=== PATIENT | male | born 1995 | race African-American/Black ===

== ENCOUNTER 2016-11-07 12:17 | Emergency (ER) | payer OTHER ==
[~2016-11-07] VITALS: Ht 167.6 cm; Wt 59.0 kg
[2016-11-07] MEDS ORDERED: LIDOCAINE HCL BUFFERED 1% 20 ML VIAL INJ ONE (15:00)
[2016-11-07] MEDS ORDERED: HYDROCODONE/ACETAMINOPHEN 5-325 MG TABLET PO ONE (15:00)
[2016-11-07] MEDS ORDERED: ETHYL CHLORIDE 103.5 ML SPRAY TP ONE (15:45)
[2016-11-07] MEDS ORDERED: POVIDONE-IODINE 10% 15 ML SOLUTION UD TP ONE (16:30)
[2016-11-07 17:39] VITALS: BP 128/72
== END 2016-11-07 18:00 | disposition home or self-care (01) ==
LOC: EMS 12:18
DX: L02.31 Cutaneous abscess of buttock (principal); F17.210 Nicotine dependence, cigarettes, uncomplicated
CPT/HCPCS: 10060; 99283; J3490

== ENCOUNTER 2016-11-09 10:39 | Emergency (ER) | payer OTHER ==
[~2016-11-09] VITALS: Ht 160 cm; Wt 61.4 kg
[2016-11-09 10:41] VITALS: BP 109/71
[2016-11-09] MEDS ORDERED: ACETAMINOPHEN/CODEINE 300-30 MG TABLET PO ONE (11:45)
== END 2016-11-09 12:41 | disposition home or self-care (01) ==
LOC: EMS 10:40
DX: Z48.00 Encounter for change or removal of nonsurgical wound dressing (principal); F17.210 Nicotine dependence, cigarettes, uncomplicated
CPT/HCPCS: 99282; 99283

== ENCOUNTER 2016-11-29 20:22 | Emergency (ER) | payer OTHER ==
[~2016-11-29] VITALS: Ht 172.7 cm; Wt 63.6 kg
[2016-11-29 20:29] VITALS: BP 111/58
[2016-11-29] MEDS ORDERED: CEPH500 PO (20:31)
[2016-11-29] MEDS ORDERED: SULF1TAB42 PO (20:31)
[2016-11-29] MEDS ORDERED: DOXYCYCLINE 100 MG CAPSULE PO ONE (21:15)
[2016-11-29] MEDS ORDERED: CEPHALEXIN MONOHYDRATE 500 MG CAPSULE PO ONE (21:15)
[2016-11-29] MEDS ORDERED: BUPIVACAINE HCL/PF 0.25% 10 ML VIAL INJ ONE (21:15)
[2016-11-29] MEDS ORDERED: IBUPROFEN 600 MG TABLET PO ONE (21:15)
== END 2016-11-29 21:59 | disposition home or self-care (01) ==
LOC: EMS 20:23
DX: H60.02 Abscess of left external ear (principal); F17.210 Nicotine dependence, cigarettes, uncomplicated
CPT/HCPCS: 10060; 99284; 99406; J3490

== ENCOUNTER 2016-12-01 17:27 | Emergency (ER) | payer OTHER ==
[~2016-12-01] VITALS: Ht 165.1 cm; Wt 59.0 kg
[~2016-12-01 17:27] MED LIST: CEPH500 PO; SULF1TAB42 PO
[2016-12-01] MEDS ORDERED: OxyCODONE HCL/ACETAMINOPHEN 5-325 MG TABLET PO ONE (18:15)
[2016-12-01 19:05] VITALS: BP 124/65
== END 2016-12-01 19:38 | disposition home or self-care (01) ==
LOC: EMS 17:28
DX: Z48.00 Encounter for change or removal of nonsurgical wound dressing (principal); F17.210 Nicotine dependence, cigarettes, uncomplicated
CPT/HCPCS: 99282

== ENCOUNTER 2017-04-05 18:06 | Emergency (ER) | payer OTHER ==
[~2017-04-05] VITALS: Ht 165.1 cm; Wt 59.1 kg
[~2017-04-05 18:06] MED LIST changes: -SULF1TAB42 PO
[2017-04-05] MEDS ORDERED: ACET-2247 PO (18:27)
[2017-04-05 18:52] VITALS: BP 125/71
[2017-04-05] MEDS ORDERED: IBUPROFEN 800 MG TABLET PO ONE (19:00)
[2017-04-05 19:51] LABS: INFLUENZA TYPE B NEGATIVE FOR TYPE B (NEGATIVE)
[2017-04-05] MEDS ORDERED: OSELTAMIVIR PHOSPHATE 75 MG CAPSULE PO ONE (20:00)
== END 2017-04-05 20:50 | disposition home or self-care (01) ==
LOC: EMS 18:07
DX: J11.1 Influenza due to unidentified influenza virus with other respiratory manifestations (principal); F12.90 Cannabis use, unspecified, uncomplicated; F17.210 Nicotine dependence, cigarettes, uncomplicated
CPT/HCPCS: 87804; 99284; 99406

== ENCOUNTER 2017-04-18 15:51 | Emergency (ER) | payer OTHER ==
[~2017-04-18] VITALS: Ht 165.1 cm; Wt 54.5 kg
[~2017-04-18 15:51] MED LIST changes: +ACET-2247 PO
[2017-04-18] MEDS ORDERED: LIDOCAINE HCL 1% 10 ML VIAL INJ ONE (18:15)
[2017-04-18] MEDS ORDERED: ONDANSETRON HCL 4 MG TABLET PO ONE (18:15)
[2017-04-18] MEDS ORDERED: HYDROCODONE/ACETAMINOPHEN 5-325 MG TABLET PO ONE (18:15)
[2017-04-18] MEDS ORDERED: POVIDONE-IODINE 10% 15 ML SOLUTION UD TP ONE (20:00)
[2017-04-18] MEDS ORDERED: LIDOCAINE HCL/PF 1% 2 ML VIAL IM ONE (20:15)
[2017-04-18] MEDS ORDERED: CefTRIAXone SODIUM 1 GM/VIAL IM ONE (20:15)
[2017-04-18 20:37] VITALS: BP 128/80
== END 2017-04-18 20:38 | disposition home or self-care (01) ==
LOC: EMS 15:52
DX: L02.31 Cutaneous abscess of buttock (principal); R03.0 Elevated blood-pressure reading, without diagnosis of hypertension; F12.90 Cannabis use, unspecified, uncomplicated; F17.210 Nicotine dependence, cigarettes, uncomplicated
CPT/HCPCS: 10060; 96372; 99283; J0696; J3490 ×2; Q0162

== ENCOUNTER 2020-01-22 13:54 | Emergency (ER) | payer OTHER, MEDICAID ==
[~2020-01-22] VITALS: Ht 167.6 cm; Wt 72.7 kg
[2020-01-22 13:56] VITALS: BP 127/84
[2020-01-22] MEDS ORDERED: KETOROLAC TROMETHAMINE 10 MG TABLET PO ONE (14:45)
== END 2020-01-22 17:01 | disposition home or self-care (01) ==
LOC: EMS 13:57
DX: S62.612A Displaced fracture of proximal phalanx of right middle finger, initial encounter for closed fracture (principal); E11.9 Type 2 diabetes mellitus without complications; F17.210 Nicotine dependence, cigarettes, uncomplicated; F12.90 Cannabis use, unspecified, uncomplicated; X50.1XXA Overexertion from prolonged static or awkward postures, initial encounter; Y93.89 Activity, other specified; Y92.89 Other specified places as the place of occurrence of the external cause; Y99.8 Other external cause status

== ENCOUNTER 2020-08-26 07:58 | Emergency (ER) | payer MEDICAID, OTHER ==
[~2020-08-26] VITALS: Ht 167.6 cm; Wt 63.6 kg
[2020-08-26 09:32] LABS: APPEARANCE,URINE CLEAR (CLEAR); BILIRUBIN,URINE NEGATIVE (NEGATIVE); GLUCOSE, URINE (UA) NEGATIVE (NEGATIVE); KETONES,URINE NEGATIVE (NEGATIVE); LEUKOCYTE ESTERASE ,URINE NEGATIVE (NEGATIVE); NITRATE,URINE NEGATIVE (NEGATIVE); OCCULT BLOOD,URINE TRACE (NEGATIVE); PH,URINE 6.5 (5.0-8.0); PROTEIN,URINE NEGATIVE (NEGATIVE); UROBILINOGEN,URINE 0.2 mg/dL (<=1.0)
[2020-08-26 09:33] LABS: BACTERIA,URINE None Seen /HPF (None Seen); RBC,URINE 0-2 /HPF (0-2); WBC,URINE None Seen /HPF (0-5)
[2020-08-26 10:41] VITALS: BP 108/56
[2020-08-26] MEDS ORDERED: LIDOCAINE/PF 1% 2 ML VIAL IM ONE (10:45)
[2020-08-26] MEDS ORDERED: DOXYCYCLINE HYCLATE 100 MG TABLET PO ONE (10:45)
[2020-08-26] MEDS ORDERED: KETOROLAC TROMETHAMINE 30 MG/ML VIAL IM ONE (10:45)
[2020-08-26] MEDS ORDERED: CefTRIAXone SODIUM 1 GM/VIAL IM ONE (10:45)
== END 2020-08-26 11:09 | disposition home or self-care (01) ==
LOC: EMS 08:02
DX: I86.1 Scrotal varices (principal); N45.1 Epididymitis; N45.2 Orchitis; F17.210 Nicotine dependence, cigarettes, uncomplicated; F12.90 Cannabis use, unspecified, uncomplicated
CPT/HCPCS: 76870; 81001; 87491; 87591; 96372; 99284; J0696; J1885; J3490

== ENCOUNTER 2022-10-31 16:49 | Emergency (ER) | payer OTHER ==
[2022-10-31] MEDS ORDERED: LEVE250T4 PO (17:10)
== END 2022-10-31 19:37 | disposition home or self-care (01) ==
LOC: EMS 16:50
DX: G40.909 Epilepsy, unspecified, not intractable, without status epilepticus (principal); F17.210 Nicotine dependence, cigarettes, uncomplicated; F12.90 Cannabis use, unspecified, uncomplicated; Z98.890 Other specified postprocedural states
CPT/HCPCS: 99282; Z7502